=== PATIENT | male | born 1950 | race Caucasian/White ===

== ENCOUNTER 2024-08-07 06:54 | Day surgery (SDC) | payer MEDICARE ==
[2024-08-03 16:26] LABS: BASOPHILS % (AUTO) 0.6 % (0-1); EOSINOPHILS # (AUTO) 0.1 X10'3 (0-0.9); EOSINOPHILS % (AUTO) 1.1 % (0-6); LYMPHOCYTES # (AUTO) 1.5 X10'3 (1.1-4.8); LYMPHOCYTES % (AUTO) 23.9 % (21-51); MEAN CORPUSCULAR HEMOGLOBIN 32.9 PG (27.0-31.0); MEAN CORPUSCULAR HGB CONC 33.4 g/dL (33.0-36.5); MEAN CORPUSCULAR VOLUME 98.5 FL (78-98); MEAN PLATELET VOLUME 8.8 FL (7.4-10.4); MONOCYTES # (AUTO) 0.6 X10'3 (0-0.9); MONOCYTES % (AUTO) 8.6 % (2-12); NEUTROPHILS # (AUTO) 4.2 X10'3 (1.8-7.7); NEUTROPHILS % (AUTO) 65.8 % (42-75); PRE OP HEMATOCRIT 41.5 % (42.0-52.0); PRE OP HEMOGLOBIN 13.8 g/dL (14.0-17.9); PRE OP PLATELET COUNT 203 X10'3 (140-440); PRE OP WHITE BLOOD COUNT 6.4 10'3 (4.8-10.8); RED BLOOD COUNT 4.21 X10'6 (4.70-6.10); RED CELL DISTRIBUTION WIDTH 14.3 % (11.5-14.5)
[2024-08-03 16:33] LABS: ALBUMIN 4.3 G/DL (3.4-5.0); ALBUMIN/GLOBULIN RATIO 1.2 (1.1-1.5); ALKALINE PHOSPHATASE 50 IU/L (46-116); BLOOD UREA NITROGEN 22 MG/DL (7-18); BUN/CREATININE RATIO 23.4 (10.0-20.0); CHLORIDE 105 MMOL/L (99-107); CREATININE 0.94 MG/DL (0.60-1.10); PRE OP ALT 23 U/L (30-65); PRE OP ANION GAP 6 (8-16); PRE OP AST 12 U/L (10-37); PRE OP BILIRUB, TOTAL 0.5 MG/DL (0.0-1.0); PRE OP GLUCOSE 84 MG/DL (70-104); PRE OP POTASSIUM 4.4 MMOL/L (3.4-5.1); PRE OP SODIUM 140 MMOL/L (135-145); TOTAL CARBON DIOXIDE 29.5 MMOL/L (24-32); TOTAL PROTEIN 7.9 G/DL (6.4-8.2); eGFR 78 ML/MIN
[~2024-08-07] VITALS: Ht 182.9 cm; Wt 87.4 kg
[2024-08-07] VITALS (19 sets, daily range): BP systolic 126–157; BP diastolic 67–83; PULSE 52–68; RESP 11–19; TEMP 98.4; O2SAT 97–100
[2024-08-07] MEDS: DOCUMENT DATE & TIME OF BETA-BLOCKER PO ONE (04:15)
[~2024-08-07 06:54] MED LIST: ALLO300T8 PO; ASPI81TA52 PO; BENA10TA74 PO; LOP25T PO
[2024-08-07] MEDS: ringers solution, lacted 1,000 ML IV SCH (07:53)
[2024-08-07] MEDS: ceFAZolin 2gm in dextrose, iso 50 ML IV ONE (07:53)
[2024-08-07] MEDS: tamsulosin 0.4mg capsule PO ONE (07:53)
[2024-08-07] MEDS: famotidine 20mg tablet PO ONE (07:53)
[2024-08-07] MEDS ORDERED: morphine 4 MG/ML inj SYRINge IV PRN (08:15)
[2024-08-07] MEDS ORDERED: enalaprilat 1.25mg/ml 2ml vial IV PRN (08:15)
[2024-08-07] MEDS ORDERED: meperidine/PF 25mg/ml syringe IV PRN ×3 (08:15)
[2024-08-07] MEDS ORDERED: ringers solution, lacted 1,000 ML IV SCH (08:15)
[2024-08-07] MEDS ORDERED: proCHLORperazine 10 MG/2 ml inj IV PRN (08:15)
[2024-08-07] MEDS ORDERED: morphine 2 MG/ML inj. syringe IV PRN (08:15)
[2024-08-07] MEDS ORDERED: labetalol 20mg/4ml (5mg/ml) syringe IV PRN (08:15)
[2024-08-07] MEDS ORDERED: ondansetron/PF 4mg/2ml inj IV PRN (08:15)
[2024-08-07] MEDS ORDERED: BUPIVAcaine 2.5mg/ml inj 50ml vial (contains preservative) ONE (08:55)
[2024-08-07] MEDS ORDERED: LIDOcaine 1% 30ml preserv. free vial ONE (08:55)
[2024-08-07] MEDS ORDERED: sevoflurane 250ml liquid IH ONE (09:28)
[2024-08-07] MEDS ORDERED: fentaNYL/PF 50MCG/1 ML 2ML syringe ONE (09:36)
[2024-08-07] MEDS ORDERED: midazolam 1 mg/ML 2ml injection ONE (09:36)
[2024-08-07] MEDS ORDERED: propofol inj 20 ML IV ONE (09:49)
[2024-08-07] MEDS ORDERED: LIDOcaine 2% (20mg/ml) 5ml vial ONE (09:49)
[2024-08-07] MEDS ORDERED: rocuronium 10mg/ml inj IV ONE (09:49)
[2024-08-07] MEDS ORDERED: ondansetron/PF 4mg/2ml inj ONE (09:55)
[2024-08-07] MEDS ORDERED: acetaminophen 1,000mg/100ml IV 100 ML IV ONE (09:56)
[2024-08-07] MEDS: BUPIVAcaine/PF 2.5 mg/ml (0.25%) 30ml vial IJ ONE (10:20)
[2024-08-07] MEDS ORDERED: meperidine/PF 100mg/ml syringe IV PRN ×2 (11:04→11:05)
[2024-08-07] MEDS: meperidine/PF 100mg/ml syringe IV PRN (11:24)
[2024-08-07] MEDS: HYDROcodone/acetaminophen 5mg/325mg tablet PO PRN (13:41)
[2024-08-07] MEDS ORDERED: LidoCAINE 2% Topical Jelly 11mL syringe (UROJET) TOP ONE (14:00)
== END 2024-08-07 14:45 | disposition home or self-care (01) ==
LOC: PAS 06:54
PROVIDERS: ATTEND Surgery
DX: K42.9 Umbilical hernia without obstruction or gangrene (principal); K40.20 Bilateral inguinal hernia, without obstruction or gangrene, not specified as recurrent; Z79.899 Other long term (current) drug therapy; I10 Essential (primary) hypertension; M10.9 Gout, unspecified; Z88.8 Allergy status to other drugs, medicaments and biological substances; Z87.891 Personal history of nicotine dependence; Z98.890 Other specified postprocedural states; G43.909 Migraine, unspecified, not intractable, without status migrainosus; M19.90 Unspecified osteoarthritis, unspecified site
CPT/HCPCS: 36415; 49591; 49650; 80053; 82948; 85025; A4215; A4314; A4618; C1781; J0131; J0690; J1100; J1885; J2003; J2175; J2250; J2405; J2704; J2710; J3010; J3490; J7030; J7120; Z7506; Z7508; Z7512; Z7610